=== PATIENT | female | born 1980 | race Hispanic/Latino ===

== ENCOUNTER 2019-05-21 22:53 | Emergency (ER) | payer OTHER ==
[~2019-05-21] VITALS: Ht 147.3 cm; Wt 76.2 kg
--- NOTE | 2019-05-21 23:46 | Diagnostic Imaging Report ---
EXAMINATION: PA and lateral views of the chest. COMPARISON: None CLINICAL HISTORY: Cough x1 week DISCUSSION: The lungs are well inflated. No focal airspace consolidation, pleural effusion, or pneumothorax. Cardiomediastinal contour and pulmonary vasculature are within normal limits. No acute osseous abnormalities. IMPRESSION: No acute cardiopulmonary abnormalities. Signed by: Dr. George Randle M.D. on 05/21/2019 11:44 PM
[2019-05-22] MEDS ORDERED: PROAIR HFA INH8.5 GM INH (00:10)
[2019-05-22] MEDS ORDERED: CODEINE-GUAIFE120 ML PO (00:10)
== END 2019-05-22 00:20 | disposition home or self-care (01) ==
LOC: FSED 22:53
DX: R05 Cough (principal); J11.1 Influenza due to unidentified influenza virus with other respiratory manifestations
CPT/HCPCS: 71046; 99283

== ENCOUNTER 2020-05-22 13:48 | Emergency (ER) | payer OTHER ==
[~2020-05-22] VITALS: Ht 147.3 cm; Wt 72.6 kg
[~2020-05-22 13:48] MED LIST: CODEINE-GUAIFE120 ML PO; PROAIR HFA INH8.5 GM INH
[2020-05-22] MEDS ORDERED: IBUPROFEN 600 MG TAB PO STA (15:00)
[2020-05-22] MEDS ORDERED: DECADRON6 MG PO (15:06)
[2020-05-22] MEDS ORDERED: IBUPROFEN 200 MG TAB ONE (15:09)
[2020-05-22] MEDS ORDERED: PROVENTIL HFA6.7 GM INH (15:31)
[2020-05-22 15:58] VITALS: BP 113/79
== END 2020-05-22 15:58 | disposition home or self-care (01) ==
LOC: FSED 13:56
DX: U07.1 COVID-19 (principal); J18.9 Pneumonia, unspecified organism; R06.02 Shortness of breath
CPT/HCPCS: 99282